=== PATIENT | female | born 1940 | race African-American/Black ===

== ENCOUNTER 2021-04-20 22:44 | Emergency (ER) | payer MEDICAID, MEDICARE ==
[~2021-04-20] VITALS: Ht 172.7 cm; Wt 55.2 kg
[2021-04-20 23:48] VITALS: BP 101/57
== END 2021-04-21 02:10 | disposition home or self-care (01) ==
LOC: ER 22:44
DX: K94.23 Gastrostomy malfunction (principal); D64.9 Anemia, unspecified; I11.0 Hypertensive heart disease with heart failure; I50.9 Heart failure, unspecified; J44.9 Chronic obstructive pulmonary disease, unspecified; F03.90 Unspecified dementia, unspecified severity, without behavioral disturbance, psychotic disturbance, mood disturbance, and anxiety; K21.9 Gastro-esophageal reflux disease without esophagitis
CPT/HCPCS: 99284